=== PATIENT | male | born 1940 | race Caucasian/White ===

== ENCOUNTER → 2020-11-26 | Outpatient (CLI) | payer OTHER ==
[~2020-11-26] MED LIST: ALLOPURINOL100 MG PO; ASPIR 8181 MG PO; ASPIRIN325 MG PO; COZAAR100 MG PO; CRESTOR10 MG PO; DILTIAZEM ER180 M1 PO; FISH OIL 1,0001 EAC5 PO; IBU800 MG PO; KEFLEX500 MG PO; LOPRESSOR100 MG PO; PERCOCET 5/325 T1 EA PO; PLAVIX75 MG PO; PREVACID15 MG PO; TRICOR 48 MG TA48 MG PO; TYLENOL 500 MG500 MG PO; VITAMIN C500 M4 PO; VITAMIN D PO
== END ==
LOC: KOH-I 13:01
DX: S82.891D Other fracture of right lower leg, subsequent encounter for closed fracture with routine healing (principal); Z98.890 Other specified postprocedural states; X58.XXXD Exposure to other specified factors, subsequent encounter
CPT/HCPCS: 73610

== ENCOUNTER → 2020-12-06 | Outpatient (CLI) | payer OTHER | LOC: KOH-I 08:50 | DX: M25.571 Pain in right ankle and joints of right foot (principal); M93.279 Osteochondritis dissecans, unspecified ankle and joints of foot | CPT/HCPCS: 73700 ==

== ENCOUNTER → 2021-03-13 | Outpatient (CLI) | payer OTHER | LOC: KOH-I 13:10 | DX: S82.841A Displaced bimalleolar fracture of right lower leg, initial encounter for closed fracture (principal); Z47.89 Encounter for other orthopedic aftercare | CPT/HCPCS: 73610 ==